=== PATIENT | male | born 1955 ===

== ENCOUNTER 2021-01-23 14:52 | Emergency (ER) | payer SELFPAY ==
[~2021-01-23] VITALS: Ht 165.1 cm; Wt 71.0 kg
[2021-01-23 15:00] VITALS: BP 118/69
== END 2021-01-23 17:41 | disposition home or self-care (01) ==
LOC: ED 17:35
DX: S00.81XA Abrasion of other part of head, initial encounter (principal); M25.551 Pain in right hip; W18.30XA Fall on same level, unspecified, initial encounter; Y93.01 Activity, walking, marching and hiking; Y92.410 Unspecified street and highway as the place of occurrence of the external cause; Y99.8 Other external cause status
CPT/HCPCS: 99283